=== PATIENT | male | born 1975 | race African-American/Black ===

== ENCOUNTER 2016-07-24 16:31 | Emergency (ER) ==
[2016-07-24] MEDS ORDERED: AMOXIL PO ONE (19:24)
--- NOTE | 2016-07-24 19:29 | PROVIDER DOCUMENTATION ---
HPI-General Adult - General Chief Complaint: Flu Symptoms Stated Complaint: FLU SX Time Seen by Provider: 07/24/16 19:18 Source: patient Allergies/Adverse Reactions: Patient Allergies Allergy/AdvReac Type Severity Reaction Status Date / Time No Known Allergies Allergy Verified 03/13/16 12:53 - History of Present Illness -Gen Adult Nature of Presenting Problems: 40 y/o WM c/o sinus congestion, body aches, sore throat x 7 days. Pt states not sure if he has had a fever/chills. States taking tylenol and motrin but no other OTC medication as he has HTN. Denies any abd. pain, cough, N/V/D/C. Review of Systems - Adult - REVIEW OF SYSTEMS - ADULT Constitutional: reports: no symptoms reported. denies: chills, fever Eyes: reports: no symptoms reported. denies: blurred vision, double vision Ears, Nose, Mouth & Throat: reports: sinus problem, throat pain. denies: ear pain, nose pain Cardiovascular: reports: no symptoms reported. denies: chest pain, palpitations Respiratory: reports: no symptoms reported. denies: dyspnea on exertion, shortness of breath Gastrointestinal: reports: no symptoms reported. denies: abdominal pain, constipation, diarrhea, nausea, vomiting Genitourinary: reports: no symptoms reported. denies: dysuria, frequency Musculoskeletal: reports: see HPI, muscle aches. denies: joint pain, joint swelling Integumentary: reports: no symptoms reported. denies: nail changes, rash Neurological: reports: no symptoms reported. denies: numbness, paresthesia Psychiatric: reports: no symptoms reported Endocrine: reports: no symptoms reported. denies: cold intolerance, heat intolerance Hematologic/Lymphatic: reports: no symptoms reported. denies: easy bruising, prolonged bleeding Allergic/Immunologic: reports: no symptoms reported All Other Systems: Reviewed and Negative Past History - Adult - PAST MEDICAL HISTORY-ADULT Review of Records: reports: Nursing Assessment Review, Medications Reviewed Major Childhood Illnesses: reports: denies history Cardiovascular: reports: HTN Respiratory: reports: denies history Gastrointestinal: reports: denies history Obstetrical/Gynecological: reports: denies history Genitourinary: reports: denies history Musculoskeletal: reports: denies history Neurological: reports: denies history, Parkinson's Endocrine/Immune: reports: denies history Other Conditions: reports: denies history - PRIOR SURGERIES/PROCEDURES Surgical/Procedure History: reports: none, other (nasal sx) - IMMUNIZATION STATUS Childhood Immunizations: See Nurse Assessment Flu Vaccine: See Nurse Assessment - FAMILY HISTORY Family History: reviewed, not pertinent - SOCIAL HISTORY Smoking: cigarettes, less than 1 pack/day Provider spent 3-5 mins advising pt. on dangers of tobacco.: Discussed manners to quit use, and f/u contacts for add'l counseling. Physical Exam-General - PHYSICAL EXAM-ADULT Initial Vital Signs Reviewed: Yes - CONSTITUTIONAL General Appearance: alert, mild distress - EYES Eyes: pink conjunctivae - HEAD, EARS, NOSE, MOUTH & THROAT HENMT: moist mucous membranes, pharyngeal erythema, maxillary tenderness. negative: tonsillar exudate, frontal tenderness - NECK Neck: supple, normal inspection, lymphadenopathy (mild cervical) - RESPIRATORY Respiratory: lungs clear, normal breath sounds. negative: crackles, rales, rhonchi, stridor, wheezing - CARDIOVASCULAR Cardiovascular: regular rate, rhythm. negative: bradycardia, tachycardia - GASTROINTESTINAL (ABDOMEN) Abdominal Exam: normal bowel sounds, non tender, soft. negative: distended, guarding, rigid, rebound - LYMPHATIC Lymphatic: negative: cervical node tenderness - MUSCULOSKELETAL Back Exam: no CVA tenderness Extremity: normal gait - SKIN Integumentary: normal color, normal turgor, warm/dry - NEUROLOGIC Neurologic: negative: aphasia - PSYCHIATRIC Psych/Mental Status: normal mood/affect, normal thought content, normal thought process, oriented x 3 Progress - PLAN OF CARE/RESULTS Progress/Plan/Lab Results: Orders Category Date Time Status Amoxicillin [Amoxil] Med 07/24/16 19:24 Discontinued 750 mg PO NOW ONE Vital Signs Temp Pulse Resp BP Pulse Ox 07/24/16 19:55 97.6 F 78 18 149/97 100 07/24/16 16:56 98.3 F 95 H 15 170/090 No Known Allergies Allergy (Verified 03/13/16 12:53) Lisinopril/Hydrochlorothiazide [Lisinopril-Hctz 10-12.5 mg Tab] 1 each PO DAILY #30 tablet 02/13/16 Amoxicillin/Pot Clavulanate [Augmentin] 875 mg PO Q12HR #14 tablet 07/24/16 Chlorpheniramine/Dextromethorp [Coricidin Hbp Cough & Cold Tab] 1 each PO Q6H PRN PRN #30 tablet 07/24/16 Fluticasone 50 Mcg Nasal [place] [Flonase] 1 spray ERNESTO DAILY #1 bottle 07/24/16 Discussed tx and f/u with pt. Departure - Departure Time of Disposition Order: 19:26 DIAGNOSIS: Sinusitis Qualifiers: Sinusitis location: maxillary Chronicity: acute Recurrence: recurrent Qualified Code(s): J01.01 - Acute recurrent maxillary sinusitis Disposition: HOME 01 Certified Medical Emergency: Emergent Condition: Stable Additional Instructions: Take medications as directed. Return or f/u with PCP if sxs get worse. Tylenol as needed for body aches. ED Follow Up Instructions: You have been treated by a care provider in the Emergency Department. These instructions are being provided to you so you can have an understanding of how to care for yourself upon discharge. Upon discharge from the Emergency Department, you are responsible for making arrangements for follow-up care by a physician of your choice. Take all prescribed medications as directed. Return to the Emergency Department immediately for any new or worsening symptoms. You may call the Physician Referral phone number at [phone] to obtain a list of Physicians who are taking new patients. Prescriptions: Amoxicillin/Pot Clavulanate [Augmentin] 875 mg PO Q12HR #14 tablet Chlorpheniramine/Dextromethorp [Coricidin Hbp Cough & Cold Tab] 1 each PO Q6H PRN PRN #30 tablet PRN Reason: Congestion Fluticasone 50 Mcg Nasal [place] [Flonase] 1 spray ERNESTO DAILY #1 bottle Referrals: Lalo Tamayo MD [STAFF PHYSICIAN] - Forms: Return to School/Parent Work Instructions: Amoxicillin capsules or tablets, Chlorpheniramine; Dextromethorphan Oral Tablets, Sinusitis, [id number]-[id number], Fluticasone nasal spray Attestation - Physician/ Mid-level Attestation Patient care was provided by Mid-level provider (INSTALLMENT AGENT/PA):: Yes Mid-level provider:: Karissa Kincaid Mid-level documentation review:: The Mid-level provider documentation, treatment plan and medical decision making was reviewed by the physician who agrees with all treatment and medical decision making by the P.
[2016-07-24 19:59] VITALS: BP 149/97
== END 2016-07-24 19:59 | disposition home or self-care (01) ==
LOC: P.ED 16:31
DX: J01.01 Acute recurrent maxillary sinusitis (principal); R09.81 Nasal congestion; M79.1 Myalgia; J02.9 Acute pharyngitis, unspecified; R59.0 Localized enlarged lymph nodes; I10 Essential (primary) hypertension; F17.210 Nicotine dependence, cigarettes, uncomplicated; Z71.6 Tobacco abuse counseling
CPT/HCPCS: 99282